=== PATIENT | male | born 2000 | race Caucasian/White ===

== ENCOUNTER 2022-02-06 05:38 | Emergency (ER) | payer OTHER, SELFPAY ==
[2022-02-06 05:41] VITALS: BP 131/109; PULSE 117; RESP 16; TEMP 36.7; O2SAT 100
--- NOTE | 2022-02-06 05:47 | ECG_ITS ---
Measurements Intervals [place] Rate: 109 P: 65 TX: 134 QRS: 85 QRSD: 104 T: 34 QT: 324 QTc: 437 Interpretive Statements SINUS TACHYCARDIA POSSIBLE LEFT ATRIAL ENLARGEMENT [-0.1mV P WAVE IN V1/V2] INCOMPLETE RIGHT BUNDLE BRANCH BLOCK [90+ ms QRS DURATION, TERMINAL R IN V1/V2, 40+ ms S IN I/aVL/V4/V5/V6] ABNORMAL RHYTHM ECG NO PREVIOUS ECG AVAILABLE FOR COMPARISON Electronically Signed On 02-06-2022 15:18:51 CDT by Rich Santoyo M.D.
--- NOTE | 2022-02-06 06:38 | ED.GENADULT ---
HPI - General Adult General Chief complaint: Chest Pain Stated complaint: Chest Pain Time Seen by Provider: 02/06/22 06:03 History of Present Illness HPI narrative: Patient is a 21-year-old male who presents ER with concerns for chest pain. Reports 5 days ago began having pain in his chest after using a weightlifting machine to do bench press. He felt a pop. Since then he has had intermittent pains between his right and left pectoralis. He is also headed over his sternum. Worse twisting and certain movements. No difficulty breathing. No cough or hemoptysis. No exertional chest discomfort. Reports family history of factor V Leiden and his mother. He also reports that his father of a NV in November of this year. Patient has not been to a doctor to be evaluated further. Reports he tried going to bed tonight but Just could not sleep so he came to the ER for further evaluation. Related Data Allergies Allergy/AdvReac Type Severity Reaction Status Date / Time No Known Allergies Allergy Verified 02/06/22 06:45 Review of Systems Review of Systems: All systems reviewed & are unremarkable except as noted in HPI and below Constitutional: Constitutional: Denies chills, Denies fatigue and Denies fever(s) Cardiovascular: Cardiovascular: Reports chest pain, Denies rapid heart rate and Denies radiating jaw, neck or arm pain Respiratory: Respiratory: Denies cough and Denies dyspnea Gastrointestinal: Gastrointestinal: Denies abdominal pain, Denies nausea and Denies vomiting Psychiatric: Psychiatric: Reports anxiety and Denies depression PMFSH Past Medical History Medical History (Updated 02/06/22 @ 06:47 by Andreas Gill MD) Healthy adult male Surgical History Surgical History (Updated 02/06/22 @ 06:47 by Andreas Gill MD) No history of previous surgery Family History Family History (Updated 02/06/22 @ 06:49 by Andreas Gill MD) Father Acute myocardial infarction Resulted in at age 47. Mother Factor V Leiden Social History Social History (Updated 02/06/22 @ 06:48 by Andreas Gill MD) Smoking status: Never smoker Exam Narrative: GENERAL: Anxious-appearing, well-nourished, and in no acute distress. HEAD: Normocephalic, atraumatic. EYES: PERRL and EOMI. CHEST: Clear to auscultation. No respiratory distress. HEART: Tachycardic regular. Normal peripheral pulses. EXTREMITIES: Normal range of motion. No edema. SKIN: Warm, dry. Psoriatic skin rash along the hairline anteriorly and to the central chest. NEURO: Alert and oriented x3. PSYCH: Patient anxious but normal thought content. No depression. Course Course Emergency Course: Patient resting comfortably. Had a good discussion about chronic health issues, his anxiety, and need for establishing care with a PCP. He reports he was planning on establishing care today after calling his insurance to see who accepted his insurance in the area. Patient reports she does have social anxiety new areas. He is not willing at this time to take anything for his anxiety as he does not think it is truly negatively impacting his life. This seems to be more of a situational anxiety event tonight given the recent of his father. Vital Signs Vital signs: Vital Signs Temperature 98.0 F 02/06/22 05:41 Pulse Rate 117 H 02/06/22 05:41 Respiratory Rate 16 02/06/22 05:41 Blood Pressure 131/109 H 02/06/22 05:41 Pulse Oximetry 100 02/06/22 05:41 Oxygen Delivery Room Air 02/06/22 05:41 Temperature 98.0 F 02/06/22 05:41 Pulse Rate 117 H 02/06/22 05:41 Respiratory Rate 16 02/06/22 05:41 Blood Pressure 131/109 H 02/06/22 05:41 Pulse Oximetry 100 02/06/22 05:41 Oxygen Delivery Room Air 02/06/22 05:41 Medical Decision Making Vital Signs Vital Signs: Vital Signs Temperature 98.0 F 02/06/22 05:41 Pulse Rate 117 H 02/06/22 05:41 Respiratory Rate 16 02/06/22 05:41 Blood Pressure 131/1
[2022-02-06 06:43] VITALS: BP 144/75; PULSE 112; RESP 13; O2SAT 100
[2022-02-06 07:11] VITALS: BP 138/78; PULSE 104; RESP 18; O2SAT 99
== END 2022-02-06 07:00 | disposition home or self-care (01) ==
PROVIDERS: Emergency Provider Emergency Medicine
DX: R07.89 Other chest pain (principal); F41.9 Anxiety disorder, unspecified; R00.0 Tachycardia, unspecified; I45.10 Unspecified right bundle-branch block; R94.31 Abnormal electrocardiogram [ECG] [EKG]
CPT/HCPCS: 93005; 99283